=== PATIENT | female | born 1945 | race Caucasian/White ===

== ENCOUNTER 2020-06-12 09:11 | Day surgery (SDC) | payer MEDICARE, OTHER ==
[2020-06-07 14:41] VITALS: BMI 26.2
[~2020-06-12 09:11] MED LIST: ACETAMINOPHEN TAB 500 MG TAB PO ONE; DEXAMETHASONE SOD PHOSPHATE 10 MG/ML 1 ML VIAL IV ONE; GABAPENTIN 300 MG CAP PO ONE; HYDROmorphone 0.5 MG/0.5 ML SYRINGE IVP PRN; LIDOCAINE 1% (10MG/ML) FOR IV START INTRADERMA PRN; MELOXICAM 7.5 MG TAB PO ONE; MIDAZOLAM 2 MG/2 ML VIAL IV PRN; ONDANSETRON 4 MG/2 ML VIAL IVP ONE; ROPIVACAINE 246.25 MG, EPINEPHrine 0.5 MG, KETOROLAC 30 MG, cloNIDine HCL/PF 80 MCG, WA... MISCELLANE ONE; TRANEXAMIC ACID 1,000 MG in SODIUM CHLORIDE 0.9% 100 ML IVPB ONE
[2020-06-12] MEDS: LACTATED RINGERS 1,000 ML IV SCH (09:58)
[2020-06-12] MEDS ORDERED: MIDAZOLAM 2 MG/2 ML VIAL ONE (11:19)
[2020-06-12] MEDS ORDERED: fentaNYL (PF) 50 MCG/ML 2 ML AMP ONE (11:19)
[2020-06-12] MEDS ORDERED: PROPOFOL 10 MG/ML 20 ML VIAL IV ONE (11:19)
[2020-06-12] MEDS ORDERED: TRANEXAMIC ACID 1,000 MG/10 ML VIAL ONE (11:19)
[2020-06-12] MEDS ORDERED: SODIUM CHLORIDE 0.9% 100 ML BAG ONE (11:19)
[2020-06-12] MEDS ORDERED: ROPIVACAINE 0.2%-NS ON-Q PUMP 1,090 MG, EMPTY PAIN BALL 1 EACH MISCELLANE PRN (11:45)
[2020-06-12] MEDS ORDERED: ceFAZolin 3,000 MG in SODIUM CHLORIDE 0.9% IRRIGATIO 3,000 ML IRRIGATION ONE (11:50)
[2020-06-12] MEDS ORDERED: LACTATED RINGERS 1,000 ML IV ONE (12:18)
[2020-06-12] MEDS ORDERED: MAGNESIUM HYDROXIDE 2,400 MG/10 ML CUP PO PRN (12:22)
[2020-06-12] MEDS ORDERED: bisacodyL 10 MG SUPP RECTAL PRN (12:22)
[2020-06-12] MEDS ORDERED: NA PHOS,M-B/NA PHOS,DI-BA 133 ML ENEMA RECTAL PRN (12:22)
[2020-06-12] MEDS ORDERED: ONDANSETRON 4 MG/2 ML VIAL IVP PRN (12:22)
[2020-06-12] MEDS ORDERED: NALOXONE 0.4 MG/ML 1 ML VIAL IV PRN (12:22)
[2020-06-12] MEDS ORDERED: HYDROmorphone 0.5 MG/0.5 ML SYRINGE IVP PRN ×3 (12:22)
[2020-06-12] MEDS ORDERED: HYDROcodone/APAP 5-325MG 1 EACH TAB PO PRN ×2 (12:22)
--- NOTE | 2020-06-12 12:29 | P.OP ---
Date of Procedure: 06/12/20 Preoperative Diagnosis: Severe osteoarthritis right knee Postoperative Diagnosis: Severe osteoarthritis right knee Procedure(s) Performed: Right total knee arthroplasty Implants: Steward [employer] Nephew Journey II CR Oxinium cruciate retaining femoral component size 3, right [employer] Journey right nonporous tibial baseplate size 2 Ste[employer] Journey II, XLPE Deep Dished articular insert, size 13 mm, Size 1-2 right [employer] Journey BCS resurfacing oval patellar component, 29 mm All components were cemented using Palacos R bone cement.. The articulation is Oxinium on polyethylene. Anesthesia: spinal Surgeon: Connor Irving Inspector Aide #1: Remberto Pepe Estimated Blood Loss (ml): 30 Pathology: other (Bone and cartilage) Condition: stable Disposition: PACU Indications for Procedure: After failure of conservative treatment we discussed the surgical and nonsurgical treatment options at length. Patient wishes to proceed with a total knee arthroplasty. Complications specific to this procedure were discussed at length, including but not limited to infection, bleeding, stiffness, and nerve injury. Covid-19 was also discussed at length with the patient, and they are aware of the current policies and procedures. The patient was given the option of delaying surgery, but they elect to proceed knowing these risks. Patient is aware of all these complications and informed consent was obtained Operative Findings: The operative findings are consistent with severe osteoarthritis the right knee Description of Procedure: Patient was seen in the preoperative area consent was reviewed and operative site was marked with a skin marker. An adductor canal pain catheter was placed by anesthesia in the preoperative area. Patient was then brought to the operating room and given preoperative antibiotics intravenously. A spinal anesthetic was administered by the anesthesia department. A tourniquet was placed on the upper thigh and the lower extremity was prepped and draped in usual sterile fashion. A gram of transexamic acid was given. A universal timeout was then performed which confirmed the patient's name, surgical site, ALLERGIES, and consent. The lower extremity was then exsanguinated and tourniquet was inflated to 250 mmHg. A standard and anterior midline approach to the knee was performed. The skin and subcutaneous tissue was dissected down to the patellar tendon. A medial parapatellar arthrotomy was then performed. The knee was then extended, the patellar was everted, and the knee was again flexed. The patellar fat pad was removed in order to enhance exposure. Anterior horns of both menisci were excised, and a release was performed to the posterior medial aspect of the knee. On gross visual inspection, there was complete loss of articular cartilage in the medial and patellofemoral joint spaces. There was also significant cartilage damage in the lateral compartment. There were multiple periarticular osteophytes which were then removed with a Ronguer. The femoral canal was then opened with the 9.5 mm intramedullary drill. The 8 mm intramedullary beth was then inserted into the femoral canal. The distal femoral cutting guide was then placed and set for 5 of valgus. The distal femoral cutting block was then pinned in place. The intramedullary beth was then removed, and the distal femur was then cut. The cutting block was then removed and the cut was checked for symmetry. Next, the sizing guide was then placed and set for 3 external rotation based off of the epicondylar axis and Whitesides line. Pins were then placed and the drill holes, and the femur was sized with the sizing stylus. The pins were then removed, and the sizing guide was then removed. The spikes of the femoral block was then placed into the predrilled holes, and malleted into place. Two 45 mm pins were then placed into the fixation holes on the cutting block. An paradise wing was then used to ensure there would be no notching with the anterior cut. The anterior condyles were cut without notching. The anterior cord cut was then performed, followed by the posterior cut, posterior chamfer cut, and the anterior chamfer cut. The collateral ligaments were protected during the entire process. The cutting block was then removed, and the femoral canal was plugged with autologous bone. Attention was then directed to the tibia. The remaining ACL was removed with a Ronguer, and the tibia was then gently subluxed forward with a large bent knee retractor. Any remaining menisci was excised. The posterior lateral corner was cauterized in order to cauterize the lateral geniculate artery. The extra medullary tibial cutting guide was then placed, set for the appropriate rotation, slope, and depth of resection. The proximal tibia cutting guide was then pinned in place. Proximal tibia was then cut and sized. Next trials were then placed with the appropriate-sized insert. The knee was able to fully ex tend and flex to 130 and was stable throughout all range of motion. The knee was then extended, patella everted. Patella was then measured, and then using an osteotomy guide, the patella was cut at the appropriate level. The patella was then measured and drilled and the patella trial was then placed. The knee was then taken through range of motion with the patella trial and the patella tracked normally. The knee was then extended patella trial was then removed and the patella was everted. Knee was then flexed and lug holes were drilled through the femoral trial and the femoral trial was then removed. The tibial was then exposed, and the tibial broach guide was then pinned in place after it was set for the appropriate rotation to allow for the most coverage without overhang. The tibia was then reamed and broached. The cut surfaces of bone were then irrigated with pulsatile lavage. The posterior structures were injected with the ropivacaine solution. The knee was also irrigated with Irrisept solution. The components were then opened, the cement was mixed, and the components were then cemented in place. The cement was allowed to harden with the knee in full extension. While the cement was hardening, the remaining soft tissues were then injected with a ropivacaine solution, which consisted of 246.25 mg of ropivacaine, 0.5 mg of epinephrine, 30 mg of Toradol, 80 g of clonidine, and 48.45 mL of sterile water, for a total of 100 mL of fluid injected. After the cemented hardened. The tourniquet was released, and hemostasis was obtained. A second gram of transexamic acid was given. The knee was again irrigated. The knee was again taken through range of motion and found to be stable throughout all range of motion of 0-130, and the patella tracked normally. The fascia was then closed with #2 strata fix suture. The subcutaneous tissue was closed with 3-0 Vicryl and 3-0 strata fix. Dermabond glue was used for the skin and placed with the knee in flexion. The patient was placed in a sterile silver dressing. Patient was then transferred to recovery room in stable condition. The laundry assistant HERMANN Lilly was required due the complexity surgery and the need for a skilled nursing surgical services director. She assisted in positioning, draping, retraction, and closure of the wound.
--- NOTE | 2020-06-12 12:56 | P.ANPRN ---
Procedure Note - Anesthesia - Nerve Block Performed Right Adductor Canal Infusion Time Out Performed: Yes Date of Procedure: 06/12/20 Procedure Start Time: 10:30 Procedure Stop Time: 10:40 Location of Patient: PreOp Indication: Acute Post-Operative Pain, Analgesia, Requested by Surgeon Sedation Type: Sedate with meaningful contact maintained Preparation: Sterile Prep Position: Supine Catheter: Indwelling Needle Types: Pajunk Needle Gauge: 21 Ultrasound used to visualize needle placement: Yes Ultrasound used to observe medication spread: Yes Injectate: 0.5% Ropivacaine (see comment for volume) Blood Aspirated: No Pain Paresthesia on Injection Noted: No Resistance on Injection: Normal Image Stored and Saved: Yes Events: Uneventful and Well Tolerated
--- NOTE | 2020-06-12 13:44 | XR ---
EXAMINATION TYPE: XR knee limited RT DATE OF EXAM: 06/12/2020 COMPARISON: None HISTORY: Postop right knee TECHNIQUE: 2 view right knee FINDINGS: Tibial and femoral components of in place. No acute fractures are evident. Postsurgical mariam nges are within soft tissues. IMPRESSION: 1. No acute fractures post knee replacement.
[2020-06-12] MEDS: SODIUM CHLORIDE 0.9% 1,000 ML IV SCH ×2 (18:01→20:56)
[2020-06-12] MEDS ORDERED: FLUTICASONE 50MCG/SPRAY NASAL 16GM EA NOSTRIL PRN (18:16)
[2020-06-12 20:43] LABS: Glucose,Whole Blood 242 mg/dL (75-99)
[2020-06-12] MEDS: traMADol 50 MG TAB PO SCH (20:49)
[2020-06-12] MEDS: ASPIRIN 325 MG TAB PO SCH (20:55)
[2020-06-12] MEDS ORDERED: METOPROLOL SUCCINATE (ER) 100 MG TAB.ER.24H PO SCH (21:00)
[2020-06-12] MEDS ORDERED: SENNOSIDES-DOCUSATE SODIUM 1 EACH TAB PO SCH (21:00)
--- NOTE | 2020-06-12 23:58 | P.CONS ---
History of Present Illness - Reason for Consult Consult date: 06/12/20 Medical management Requesting physician: Connor Irving - Chief Complaint Post right total knee arthroplasty, history of breast cancer, hypertension, - History of Present Illness 75-year-old female one of Dr. 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 Patient was seen Dr. Irving and try conservative management patient x-ray and findings were consistent with severe arthritis of the right knee patient was scheduled for elective surgery which was done today successfully with no major complication. Patient was admitted to the floor after surgery resume her home meds ration is doing well very stable hemodynamically pain is well controlled. Review of Systems CONSTITUTIONAL: Well-developed no acute respiratory distress. EYES: No icterus sclerae, no conjunctivitis. EARS, NOSE, MOUTH, THROAT, and FACE: No sore throat, lymphadenopathy, carotid bruits or deformity. RESPIRATORY: No SOB cough or wheezes. CARDIOVASCULAR: No CP, Palpitation, PND, Orthopnea, or angina. GASTROINTESTINAL: No Abd pain, Nausea or vomiting, no Diarrhea or constipation, No GI Bleed, no distention or masses. GENITOURINARY: Negative for Hematuria or UTI, no kidney stones. INTEGUMENT/BREAST: Negative for any muscular injury with mild osteoarthritis.. HEMATOLOGIC/LYMPHATIC: Negative for bleed or purpura. MUSCULOSKELTAL: Negative for Myalgia or arthralgia. Incision on her right knee looks fine with no hematoma or hemorrhage. NEURLOGICAL: No LOC, Sz or syncope, blurred vision dizziness or abnormality.. BEHAVIORAL/PSYCH: Negative. ENDOCRINE: Negative. Social history: She quit smoking 6 years ago is to be mostly social smoker, she drinks alcohol between 4-5 drinks a week never been an alcoholic. She is retired high school social studies teacher lives in multiple state mostly [place] for over 30 years [place] and partially [place]. She is and lives home alone. Family history: Patient's father age 45 from CAD, mother at age 63 from CAD atherosclerotic heart disease. Patient had 2 sister and one brother or sister from heart disease and brother from acute myocardial infarction. Patient had 2 children one of them age 28 from overdose. Past Medical History Past Medical History: Cancer, Hypertension, Osteoarthritis (OA), Thyroid Disorder Additional Past Medical History / Comment(s): migraines, leaky heart valve, sobeida icose veins, hiatal hernia, breast cancer History of Any Multi-Drug Resistant Organisms: None Reported Past Surgical History: Breast Surgery, Joint Replacement, Orthopedic Surgery Additional Past Surgical History / Comment(s): neck surgery for radiculopathy, rt mastectomy, left hip replacement, bunionectomy zacarias great toes, Past Anesthesia/Blood Transfusion Reactions: No Reported Reaction Past Psychological History: No Psychological Hx Reported Smoking Status: Former smoker Past Alcohol Use History: Occasional Additional Past Alcohol Use History / Comment(s): was a "someday smoker",quit smoking 6 yrs ago, started in college, wine 5 x week Past Drug Use History: None Reported Additional Drug Use History / Comment(s): occ CBD oil for sleep - Past Family History Mother Family Medical History: No Reported History Medications and Allergies Home Medications Medication Instructions Recorded Confirmed Type Anastrozole [Arimidex] 1 mg PO DAILY 06/07/20 06/12/20 History Cannabidiol (Cbd) [Epidiolex] 0 mg PO HS PRN 06/07/20 06/12/20 History Fluticasone Nasal [place] [Flonase 1 spray EA NOSTRIL DAILY PRN 06/07/20 06/12/20 History Nasal [place]] Levothyroxine Sodium [Synthroid] 50 mcg PO DAILY 06/07/20 06/12/20 History Metoprolol Succinate (ER) [Toprol 100 mg PO HS 06/07/20 06/12/20 History Xl] hydroCHLOROthiazide [Hydrodiuril] 25 mg PO DAILY 06/07/20 06/12/20 History lisinopriL 20 mg PO DAILY 06/07/20 06/12/20 History traMADol HCL [Ultram] 50 mg PO BID 06/07/20 06/12/20 History Allergies Allergy/AdvReac Type Severity Reaction Status Date / Time adhesive Allergy skin itchy Verified 06/12/20 09:41 and oozing adhesive tape Allergy skin itchy Verified 06/12/20 09:41 and oozing Physical Exam Vitals: Vital Signs Temp Pulse Pulse Resp BP Pulse Ox 06/12/20 17:15 78 98/62 94 L 06/12/20 17:00 79 101/66 94 L 06/12/20 16:45 79 109/71 96 06/12/20 16:30 77 115/72 96 06/12/20 16:15 82 128/77 97 06/12/20 16:00 82 129/79 98 06/12/20 15:45 75 135/75 96 06/12/20 15:30 69 126/82 96 06/12/20 15:15 97.6 F 72 120/76 99 06/12/20 14:30 71 16 110/59 98 06/12/20 14:00 68 16 122/65 98 06/12/20 13:45 67 16 123/62 98 06/12/20 13:30 68 16 125/59 98 06/12/20 13:17 97.0 F L 74 16 119/59 97 06/12/20 10:25 58 L 16 119/67 97 06/12/20 10:13 60 16 117/66 97 06/12/20 09:25 97.4 F L 63 16 138/71 97 Intake and Output 06/12/20 06/12/20 06/12/20 06:59 14:59 22:59 Intake Total 1501 Output Total 30 Balance 1471 Intake: IV 1501 Output: Estimated Blood Loss 30 Other: Weight 66.4 kg 66.4 kg General Appearance: Alert, cooperative, no distress, appears stated age. Neck HEENT: Supple, no lymphadenopathy, no thyroid enlargement, no carotid bruits. Lungs: Clear to auscultation without crackles or wheezes no rhonchi, no deformity. Chest Wall: Chest wall normal expansion with deep inspiration no tenderness and no deformity was found on exam, no costochondral pain or discomfort. Heart: Regular rate and rhythm, S1, S2 normal, no murmur, rub or gallop. Back: Symmetric, no curvature, ROM normal, no CVA tenderness. Abdomen: Soft, non-tender, bowel sounds active all four quadrants, no masses, no organomegaly. Extremities: Trace edema incision on the right knee looks fine with no hematoma or bleeding no cough tenderness positive pulse ultrasound pedis patient had no dropping foot. Pulses: 2+ and symmetric. Skin: Skin color, texture, tugor normal, no rashes or lesions. Neurologic: Alert oriented x3 cranial nerves II through XII intact, no motor deficit, no abnormal balance or gait. Assessment and Plan Assessment: 1 status post right total knee arthroplasty: Resume home meds, watch patient hemodynamic status carefully, control pain and advance physical therapy gradually. 2 history of breast cancer: Has been in remission doing well. 3 hypertension: Remain on Toprol-XL 100 mg a day along with lisinopril 20 mg daily. 4 edema: Patient has been on Hydrea diarrheal which should be held while she is in the hospital for now. 5 hypothyroidism: Continue levothyroxine at 50 g daily. 6 chronic pain syndrome: Has been on tramadol twice a day. 7 chronic ALLERGY: Still on Flonase nasal spray as needed. 8 GI prophylaxis: Patient be on Pepcid 20 mg daily. 9 DVT prophylaxis: Patient will be on heparin 5000 units subcutaneous twice a day and early mobilization. CODE STATUS: Full code. Dr. Irving thank you very much for the consult psych can be any further help to please let me know.
[2020-06-13] MEDS: LACTATED RINGERS 1,000 ML IV SCH (00:37)
--- NOTE | 2020-06-13 06:25 | P.PN ---
Progress Note - Text Progress Note Date: 06/13/20 patient is postop day 1 from a right total knee arthroplasty. She has a right- sided abductor canal catheter in place which is working very well. She required 2 [place] over in night at 5 AM this morning. Otherwise she's been doing very well. Site is clean and dry. she has been motor strength in the right lower extremity. She denies any new-onset numbness or tingling. She still has some pain over the posterior aspect of the right knee. She is resting comfortably. She denies any lethargy
[2020-06-13] MEDS ORDERED: LEVOTHYROXINE 50 MCG TAB PO SCH (06:30)
[2020-06-13 07:15] LABS: Basophils % (A) 0 %; Eosinophils % (A) 0 %; HCT 35.3 % (34.0-46.0); HGB 11.4 gm/dL (11.4-16.0); Lymphocytes # (A) 1.1 k/uL (1.0-4.8); Lymphocytes % (A) 10 %; MCH 32.1 pg (25.0-35.0); MCHC 32.4 g/dL (31.0-37.0); MCV 99.3 fL (80.0-100.0); Mean Platelet Volume 9.7; Monocytes # (A) 0.6 k/uL (0-1.0); Monocytes % (A) 5 %; Neutrophils # (A) 9.3 k/uL (1.3-7.7); Neutrophils % (A) 84 %; Platelet Count 150 k/uL (150-450); RBC 3.55 m/uL (3.80-5.40); RDW 12.5 % (11.5-15.5); WBC 11.1 k/uL (3.8-10.6)
[2020-06-13 07:23] VITALS: BP 115/71; PULSE 67; RESP 17; TEMP 97.5
[2020-06-13] MEDS: SODIUM CHLORIDE 0.9% 1,000 ML IV SCH (08:11)
[2020-06-13] MEDS: traMADol 50 MG TAB PO SCH (08:11)
[2020-06-13] MEDS: ASPIRIN 325 MG TAB PO SCH (08:16)
[2020-06-13] MEDS ORDERED: HYDROcodone/APAP 7.5-325MG 1 EACH TAB PO PRN ×2 (08:37)
--- NOTE | 2020-06-13 08:40 | P.DS ---
Providers Expected date of discharge: 06/13/20 Attending physician: Connor Irving Consults: 06/12/20 12:22 Consult Physician Routine Consulting Provider: Marivel Hinojosa Consult Reason/Comments: medical management Do you want consulting provider notified?: Yes Primary care physician: Marivel Hinojosa MD - Discharge Diagnosis(es) (1) Osteoarthritis of right knee Current Visit: Yes Status: Acute (2) S/P total knee arthroplasty Current Visit: Yes Status: Acute Hospital Course: This is a 75-year-old female with known history of degenerative arthritis of the right knee. The patient presents for evaluation. After discussion and consideration patient elects to proceed with total knee arthroplasty. The patient is seen preoperatively by Dr. Irving and medically cleared for surgery by their primary care physician. Patient is admitted to [facility] on 06/12/2020 for total knee arthroplasty. The procedures performed without complication or sequelae. The patient is doing well postoperatively. Labs and vital signs are stable on day of discharge. On day of discharge patient's knee incision is healing well. There is minimal erythema. There is no drainage noted at this time. There is minimal soft tissue swelling to the knee. Patient has full foot and ankle motion without difficulty or pain. Calf is soft and nontender to palpation. Neurovascular status to the right lower extremity is intact. Patient is discharged home in good condition. Opioid start talking form is reviewed and signed. Please see med rec for accurate list of home medications. Plan - Discharge Summary Discharge Rx Participant: Yes New Discharge Prescriptions: New HYDROcodone/APAP 7.5-325MG [[place] 7.5-325] 1 - 2 tab PO Q6H PRN #32 tab PRN Reason: Pain Sennosides [Senokot] 2 tab PO DAILY PRN #60 tablet PRN Reason: Constipation No Action traMADol HCL [Ultram] 50 mg PO BID Metoprolol Succinate (ER) [Toprol Xl] 100 mg PO HS Levothyroxine Sodium [Synthroid] 50 mcg PO DAILY lisinopriL 20 mg PO DAILY hydroCHLOROthiazide [Hydrodiuril] 25 mg PO DAILY Anastrozole [Arimidex] 1 mg PO DAILY Fluticasone Nasal [place] [Flonase Nasal [place]] 1 spray EA NOSTRIL DAILY PRN PRN Reason: Congestion Cannabidiol (Cbd) [Epidiolex] 0 mg PO HS PRN PRN Reason: sleep Discharge Medication List Anastrozole [Arimidex] 1 mg PO DAILY 06/07/20 [History] Cannabidiol (Cbd) [Epidiolex] 0 mg PO HS PRN 06/07/20 [History] Fluticasone Nasal [place] [Flonase Nasal [place]] 1 spray EA NOSTRIL DAILY PRN 06/07/20 [History] Levothyroxine Sodium [Synthroid] 50 mcg PO DAILY 06/07/20 [History] Metoprolol Succinate (ER) [Toprol Xl] 100 mg PO HS 06/07/20 [History] hydroCHLOROthiazide [Hydrodiuril] 25 mg PO DAILY 06/07/20 [History] lisinopriL 20 mg PO DAILY 06/07/20 [History] traMADol HCL [Ultram] 50 mg PO BID 06/07/20 [History] HYDROcodone/APAP 7.5-325MG [[place] 7.5-325] 1 - 2 tab PO Q6H PRN #32 tab 06/13/20 [Rx] Sennosides [Senokot] 2 tab PO DAILY PRN #60 tablet 06/13/20 [Rx] Follow up Appointment(s)/Referral(s): Connor Irving DO [Doctor of Osteopathic Medicine] - 2 Weeks Activity/Diet/Wound Care/Special Instructions: Please take aspirin 325mg twice daily for 30 days to prevent blood clots. Weightbearing as tolerated with a walker. CPM 5-6h daily. Leave dressing intact. May be removed by home care nurse or by patient in 10 days. May shower with dressing on. Recommend use of compression stockings daily until follow up to help prevent swelling and blood clots. May remove at night before sleeping. Please follow up with [facility] and call with any questions or concerns, . Discharge Disposition: HOME WITH HOME HEALTH SERVICES
[2020-06-13] MEDS ORDERED: lisinopriL 20 MG TAB PO SCH (09:00)
[2020-06-13] MEDS ORDERED: ANASTROZOLE 1 MG TAB PO SCH (09:00)
[2020-06-13] MEDS ORDERED: FAMOTIDINE 20 MG TAB PO SCH (09:00)
[2020-06-13] MEDS ORDERED: MELOXICAM 7.5 MG TAB PO SCH (09:00)
--- NOTE | 2020-06-13 10:21 | P.PN ---
Subjective Progress Note Date: 06/13/20 75-year-old female one of Dr. 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 Patient was seen Dr. Irving and try conservative management patient x-ray and findings were consistent with severe arthritis of the right knee patient was scheduled for elective surgery which was done today successfully with no major complication. Patient was admitted to the floor after surgery resume her home meds ration is d oing well very stable hemodynamically pain is well controlled. 06/13: Patient seen and examined resting in bed this morning. Reports doing well pain is well controlled. Right knee surgical dressing in place. Mild bruising to right knee continue ice pack and stocking on discharge. Vital signs are stable patient remains afebrile. Plan to discharge patient home today. Objective - Vital Signs Vital signs: Vital Signs Temp 97.5 F L 06/13/20 07:00 Pulse 67 06/13/20 07:00 Resp 17 06/13/20 07:00 BP 115/71 06/13/20 07:00 Pulse Ox 94 L 06/13/20 07:00 Intake & Output 06/12/20 06/13/20 06/13/20 18:59 06:59 18:59 Intake Total 1501 Output Total 30 Balance 1471 Weight 66.4 kg Intake: IV 1501 Output: Estimated Blood Loss 30 Other: # Voids 1 - Exam General Appearance: Alert, cooperative, no distress, appears stated age. Neck HEENT: Supple, no lymphadenopathy, no thyroid enlargement, no carotid bruits. Lungs: Clear to auscultation without crackles or wheezes no rhonchi, no deformity. Chest Wall: Chest wall normal expansion with deep inspiration no tenderness and no deformity was found on exam, no costochondral pain or discomfort. Heart: Regular rate and rhythm, S1, S2 normal, no murmur, rub or gallop. Back: Symmetric, no curvature, ROM normal, no CVA tenderness. Abdomen: Soft, non-tender, bowel sounds active all four quadrants, no masses, no organomegaly. Extremities: Trace edema incision on the right knee looks fine with no hematoma or bleeding no cough tenderness positive pulse ultrasound pedis patient had no dropping foot. Pulses: 2+ and symmetric. Skin: Skin color, texture, tugor normal, no rashes or lesions. Right knee surgical dressing clean dry and intact. Mild bruising to right knee. Neurologic: Alert oriented x3 cranial nerves II through XII intact, no motor deficit, no abnormal balance or gait. - Labs CBC & Chem 7: 06/13/20 06:36 Labs: Abnormal Lab Results - Last 24 Hours (Table) 06/12/20 06/13/20 Range/Units 20:41 06:36 WBC 11.1 H (3.8-10.6) k/uL RBC 3.55 L (3.80-5.40) m/uL Neutrophils # 9.3 H (1.3-7.7) k/uL POC Glucose (mg/dL) 242 H (75-99) mg/dL Assessment and Plan Assessment: Discharge diagnosis: 1 status post right total knee arthroplasty: 2 history of breast cancer: 3 hypertension: 4 edema: 5 hypothyroidism: 6 chronic pain syndrome: 7 chronic ALLERGY:
== END 2020-06-13 10:51 | disposition home health service (06) ==
LOC: OR 09:11 → 4SSUR 13:08 → OR 06-13 10:51
PROVIDERS: ATTEND Orthopaedic Surgery
DX: M17.11 Unilateral primary osteoarthritis, right knee (principal); I10 Essential (primary) hypertension; Z98.1 Arthrodesis status; I34.0 Nonrheumatic mitral (valve) insufficiency; I49.3 Ventricular premature depolarization; G47.00 Insomnia, unspecified; E03.9 Hypothyroidism, unspecified; E78.5 Hyperlipidemia, unspecified; G43.909 Migraine, unspecified, not intractable, without status migrainosus; I38 Endocarditis, valve unspecified; I83.90 Asymptomatic varicose veins of unspecified lower extremity; K44.9 Diaphragmatic hernia without obstruction or gangrene; Z87.891 Personal history of nicotine dependence; Z85.3 Personal history of malignant neoplasm of breast; Z96.642 Presence of left artificial hip joint; Z90.11 Acquired absence of right breast and nipple; Z82.49 Family history of ischemic heart disease and other diseases of the circulatory system; Z82.61 Family history of arthritis; Z82.3 Family history of stroke; Z79.890 Hormone replacement therapy; Z79.1 Long term (current) use of non-steroidal anti-inflammatories (NSAID); Z79.891 Long term (current) use of opiate analgesic; Z79.899 Other long term (current) drug therapy; Z91.09 Other allergy status, other than to drugs and biological substances; Z98.890 Other specified postprocedural states
CPT/HCPCS: 97110; 97161; 64448; 76942; 85025; 88300; 73560; 27447; C1713; C1776; J2250; J0171; J1100; J0690 ×3; J2405; J3010; J1885; S0170; J2795 ×2; J2704; J0735